=== PATIENT | female | born 1940 | race Hispanic/Latino ===

== ENCOUNTER → 2017-11-09 | Outpatient (CLI) | payer OTHER, MEDICARE ==
[~2017-11-09] MED LIST: ALBU8.5H8 IH; AMLO2.5T PO; ASPI-1197 PO; ATOR40TA69 PO; AZIT250T PO; Buspirone Hcl PO; CITA10TA13 PO; CLOP75TA32 PO; Cephalexin PO; FURO40TA5 PO; FURO40TA7 PO; GABA-531 PO; INSU200I4 SQ; ISOS20TA7 PO; ISOS60TA4 PO; LEVO100T12 PO; LOSA50TA37 PO; METO-408 PO; NITR0.4T SL; PANT40TA25 PO; ROPI0.255 PO; TYL3 PO; UMEC1DIS IH
== END ==
LOC: RAH 12:09
PROVIDERS: ATTEND Internal Medicine
DX: M19.072 Primary osteoarthritis, left ankle and foot (principal)
CPT/HCPCS: 73630

== ENCOUNTER 2017-12-01 12:57 | Observation (INO) | payer OTHER, MEDICARE ==
[~2017-12-01] VITALS: Ht 160 cm; Wt 93.2 kg
[~2017-12-01 12:57] MED LIST changes: -AMLO2.5T PO; -ISOS60TA4 PO
[2017-12-01 13:32] LABS: BASOPHILS % (AUTO) 0.4 % (0.0-5.0); EOSINOPHILS % (AUTO) 1.2 % (0.0-8.0); HEMATOCRIT 31.3 % (36-48); LYMPHOCYTES % (AUTO) 14.1 % (21.0-51.0); MEAN CORPUSCULAR HGB CONC 33.2 g/dL (32.0-36.0); MEAN CORPUSCULAR VOLUME 81.3 fL (79-99); NEUTROPHILS % (AUTO) 79.3 % (40.0-77.0); PLATELET COUNT (AUTO) 177 K/uL (130-400); RED BLOOD CELL COUNT(AUTO) 3.85 MIL/uL (4.00-5.50); RED CELL DISTRIBUTION WIDTH 16.1 % (11.0-15.5); WHITE BLOOD COUNT (AUTO) 7.9 K/uL (4.8-10.8)
[2017-12-01 13:51] LABS: CREATININE 1.1 mg/dL (0.5-1.5); POTASSIUM 4.2 mmol/L (3.5-5.1)
[2017-12-01 13:55] LABS: BILIRUBIN,TOTAL 0.6 mg/dL (0.2-1.0)
[2017-12-01 13:56] LABS: ALBUMIN 3.5 g/dL (3.5-5.0); TOTAL PROTEIN, SERUM 7.8 g/dL (6.0-8.3)
[2017-12-01] MEDS ORDERED: ASPIRIN 325 MG TABLET ONE (15:07)
[2017-12-01] MEDS ORDERED: NITROGLYCERIN 1GM/1 INCH PACKET TD ONE (15:18)
[2017-12-01] MEDS ORDERED: FUROSEMIDE 10 MG/ML 4ML VIAL ONE (15:18)
[2017-12-01] MEDS ORDERED: METHYLPREDNISOLONE SOD SUCC 40MG/ML 1ML ONE (15:18)
[2017-12-01] MEDS ORDERED: ALBUTEROL SULFATE 0.083% 2.5 MG/3 ML INH IH PRN ×2 (16:30→18:45)
[2017-12-01] MEDS: ALBUTEROL SULFATE 0.083% 2.5 MG/3 ML INH IH SCH (16:56)
[2017-12-01] MEDS: NITROGLYCERIN 1GM/1 INCH PACKET TD SCH ×2 (17:00→23:02)
[2017-12-01] MEDS ORDERED: BUSPIRONE HCL 5 MG TABLET PO PRN (18:15)
[2017-12-01] MEDS ORDERED: AZITHROMYCIN 250 MG TABLET PO SCH (18:30)
[2017-12-01] MEDS ORDERED: MAG HYDROX/AL HYDROX/SIMETH ES 30 ML SUSP UDCUP PO PRN (18:45)
[2017-12-01] MEDS ORDERED: ACETAMINOPHEN 325 MG TAB PO PRN ×2 (18:45)
[2017-12-01] MEDS ORDERED: ONDANSETRON HCL MDV 20ML 2 MG/ML VIAL IV PRN (18:45)
[2017-12-01] MEDS ORDERED: GLUCAGON 1MG KIT 1 MG ML IM PRN (19:15)
[2017-12-01] MEDS ORDERED: LIDOCAINE HCL-MPF 1% 2ML VIAL IVP PRN (19:15)
[2017-12-01] MEDS ORDERED: POTASSIUM CHLORIDE 10% ELIXIR 20 MEQ/15 ML UDCUP PO PRN (19:15)
[2017-12-01] MEDS ORDERED: POTASSIUM CHLORIDE 20MEQ/100ML 100 ML IV PRN (19:15)
[2017-12-01] MEDS ORDERED: DEXTROSE 50%-WATER 50 ML DISP.SYRIN IV PRN (19:15)
[2017-12-01] MEDS ORDERED: POTASSIUM CHLORIDE 20 MEQ ERTAB PO PRN (19:15)
[2017-12-01 20:00] VITALS: BP 148/60
[2017-12-01 20:37] LABS: CREATINE KINASE MB 0.8 ng/mL (0.5-3.6); CREATINE KINASE, TOTAL 42 U/L (21-232); MYOGLOBIN 103 ng/mL (10-92); TROPONIN I < 0.04 ng/mL (0.00-0.06)
[2017-12-01] MEDS ORDERED: ALBUTEROL SULFATE 0.083% 2.5 MG/3 ML INH IH SCH (21:00)
[2017-12-01] MEDS ORDERED: FUROSEMIDE 40 MG TABLET PO SCH (21:00)
[2017-12-01] MEDS ORDERED: ACETAMINOPHEN-CODEINE 300/30MG TAB PO PRN (21:00)
[2017-12-01] MEDS: GABAPENTIN 300 MG CAPSULE PO SCH (21:04)
[2017-12-01] MEDS: FUROSEMIDE 40 MG TABLET PO SCH (21:05)
[2017-12-01] MEDS: INSULIN HUMULIN R 100 UNIT/ML 3ML SQ SCH (21:10)
[2017-12-01] MEDS: INSULIN GLARGINE 100 UNITS/ML 10 ML VIAL SQ SCH (23:06)
[2017-12-02] VITALS: BP 162/72
[2017-12-02 02:21] LABS: CREATINE KINASE MB 0.9 ng/mL (0.5-3.6); CREATINE KINASE, TOTAL 38 U/L (21-232); MYOGLOBIN 97 ng/mL (10-92); TROPONIN I < 0.04 ng/mL (0.00-0.06)
[2017-12-02 04:00] VITALS: BP 144/60
[2017-12-02] MEDS: LEVOTHYROXINE 100 MCG TABLET PO SCH (06:03)
[2017-12-02] MEDS: NITROGLYCERIN 1GM/1 INCH PACKET TD SCH (06:03)
[2017-12-02] MEDS: ALBUTEROL SULFATE 0.083% 2.5 MG/3 ML INH IH SCH ×4 (06:47→19:32)
[2017-12-02] MEDS: INSULIN HUMULIN R 100 UNIT/ML 3ML SQ SCH ×4 (06:49→21:00)
[2017-12-02] MEDS: INSULIN GLARGINE 100 UNITS/ML 10 ML VIAL SQ SCH ×2 (06:50→23:17)
[2017-12-02 07:02] LABS: CREATININE 1.4 mg/dL (0.5-1.5); INR 0.99 (0.85-1.15); MAGNESIUM 2.3 mg/dL (1.80-2.40); POTASSIUM 4.2 mmol/L (3.5-5.1); PROTHROMBIN TIME 10.4 SEC (9.6-11.6)
[2017-12-02 07:16] LABS: T4 (THYROXINE) 11.9 mcg/dL (4.7-13.3); THYROID STIMULATING HORMONE 1.55 uIU/mL (0.36-3.74)
[2017-12-02 08:07] VITALS: BP 181/71
[2017-12-02] MEDS: GABAPENTIN 300 MG CAPSULE PO SCH ×2 (09:00→23:17)
[2017-12-02] MEDS ORDERED: CLOPIDOGREL BISULFATE 75 MG TAB PO SCH (09:00)
[2017-12-02] MEDS ORDERED: Metoprolol Succinate 25 MG PO SCH (09:00)
[2017-12-02] MEDS ORDERED: ROPINIROLE HCL 0.25 MG PO SCH (09:00)
[2017-12-02] MEDS ORDERED: ISOSORBIDE MONONITRATE 20 MG TABLET PO SCH (09:00)
[2017-12-02] MEDS ORDERED: ACETAMINOPHEN-CODEINE 300/30MG TAB PO SCH (09:00)
[2017-12-02] MEDS ORDERED: ISOSORBIDE MONO 30MG TAB SR PO SCH (09:00)
[2017-12-02] MEDS ORDERED: LOSARTAN 50 MG TABLET PO SCH (09:00)
[2017-12-02] MEDS: FUROSEMIDE 40 MG TABLET PO SCH ×2 (10:08→23:17)
[2017-12-02] MEDS: ASPIRIN 81MG TAB.CHEW PO SCH (10:08)
[2017-12-02] MEDS: CITALOPRAM 20 MG TABLET PO SCH (10:09)
[2017-12-02] MEDS: ATORVASTATIN CALCIUM 40 MG TABLET PO SCH (10:09)
[2017-12-02] MEDS: PANTOPRAZOLE SODIUM 40 MG TABLET.DR PO SCH (10:15)
[2017-12-02] MEDS: ISOSORBIDE MONO 30MG TAB SR PO SCH (10:29)
[2017-12-02] MEDS: LOSARTAN 50 MG TABLET PO SCH (10:29)
[2017-12-02 11:17] VITALS: BP 165/73
[2017-12-02] MEDS: LACTULOSE 20 GM/30 ML UDCUP PO PRN (15:05)
[2017-12-02] MEDS ORDERED: PHARMACY COMMUNICATION MISC SCH (16:00)
[2017-12-02] MEDS ORDERED: MAGNESIUM HYDROXIDE 30 ML/UDCUP PO SCH (16:00)
[2017-12-02 16:08] VITALS: BP 125/60
[2017-12-02] MEDS ORDERED: LIDOCAINE HCL 2% VISCOUS 30 ML, MAG HYDROX/AL HYDROX/SIMETH 30 ML, DICYCLOMINE HCL 20 MG PO PRN ×6 (16:30)
[2017-12-02] MEDS ORDERED: COMPOUND PO MISCELLANEOUS 1 EACH MISC MISC PRN (16:30)
[2017-12-02 16:46] LABS: CREATINE KINASE MB 2.2 ng/mL (0.5-3.6); CREATINE KINASE, TOTAL 129 U/L (21-232); MYOGLOBIN 1148 ng/mL (10-92); TROPONIN I < 0.04 ng/mL (0.00-0.06)
[2017-12-02 17:50] LABS: ALBUMIN 3.8 g/dL (3.5-5.0); BILIRUBIN,TOTAL 0.6 mg/dL (0.2-1.0); POTASSIUM 3.6 mmol/L (3.5-5.1); TOTAL PROTEIN, SERUM 8.2 g/dL (6.0-8.3)
[2017-12-02 20:00] VITALS: BP 140/52
[2017-12-03] VITALS: BP 125/46
[2017-12-03 00:55] VITALS: BP 132/51
[2017-12-03 04:00] VITALS: BP 130/54
[2017-12-03] MEDS: INSULIN HUMULIN R 100 UNIT/ML 3ML SQ SCH ×2 (06:20→11:14)
[2017-12-03 06:48] LABS: HEMATOCRIT 29.7 % (36-48); MEAN CORPUSCULAR HEMOGLOBIN 27.4 pg (27.0-33.0); MEAN CORPUSCULAR HGB CONC 33.5 g/dL (32.0-36.0); MEAN CORPUSCULAR VOLUME 81.7 fL (79-99); PLATELET COUNT (AUTO) 188 K/uL (130-400); RED BLOOD CELL COUNT(AUTO) 3.63 MIL/uL (4.00-5.50); RED CELL DISTRIBUTION WIDTH 16.7 % (11.0-15.5); WHITE BLOOD COUNT (AUTO) 9.4 K/uL (4.8-10.8)
[2017-12-03] MEDS: ALBUTEROL SULFATE 0.083% 2.5 MG/3 ML INH IH SCH ×3 (06:55→14:26)
[2017-12-03] MEDS: LEVOTHYROXINE 100 MCG TABLET PO SCH (07:03)
[2017-12-03 07:07] LABS: CREATININE 2.4 mg/dL (0.5-1.5); POTASSIUM 4.1 mmol/L (3.5-5.1)
[2017-12-03 07:13] LABS: B-TYPE NATRIURETIC PEPTIDE 489 pg/mL (0-100)
[2017-12-03] MEDS: INSULIN GLARGINE 100 UNITS/ML 10 ML VIAL SQ SCH (07:13)
[2017-12-03 07:51] VITALS: BP 152/71
[2017-12-03] MEDS: PANTOPRAZOLE SODIUM 40 MG TABLET.DR PO SCH (09:51)
[2017-12-03] MEDS: ISOSORBIDE MONO 30MG TAB SR PO SCH (09:51)
[2017-12-03] MEDS: ASPIRIN 81MG TAB.CHEW PO SCH (09:52)
[2017-12-03] MEDS: ATORVASTATIN CALCIUM 40 MG TABLET PO SCH (09:52)
[2017-12-03] MEDS: CITALOPRAM 20 MG TABLET PO SCH (09:52)
[2017-12-03] MEDS: GABAPENTIN 300 MG CAPSULE PO SCH (09:52)
[2017-12-03] MEDS: LOSARTAN 50 MG TABLET PO SCH (09:52)
[2017-12-03] MEDS: FUROSEMIDE 40 MG TABLET PO SCH (09:52)
[2017-12-03 11:12] VITALS: BP 172/80
[2017-12-03] MEDS ORDERED: ISOS60TA4 PO (13:02)
[2017-12-03] MEDS ORDERED: AMLO2.5T PO (13:02)
== END 2017-12-03 15:15 | disposition home or self-care (01) ==
LOC: EDH 12:57 → EDHIP 15:06 → 3CH 15:55
PROVIDERS: ADMIT Internal Medicine; ATTEND Internal Medicine
DX: R07.89 Other chest pain (principal); I25.10 Atherosclerotic heart disease of native coronary artery without angina pectoris; J44.9 Chronic obstructive pulmonary disease, unspecified; I13.0 Hypertensive heart and chronic kidney disease with heart failure and stage 1 through stage 4 chronic kidney disease, or unspecified chronic kidney disease; E11.22 Type 2 diabetes mellitus with diabetic chronic kidney disease; E11.3299 Type 2 diabetes mellitus with mild nonproliferative diabetic retinopathy without macular edema, unspecified eye; E11.42 Type 2 diabetes mellitus with diabetic polyneuropathy; E11.51 Type 2 diabetes mellitus with diabetic peripheral angiopathy without gangrene; D63.8 Anemia in other chronic diseases classified elsewhere; I50.43 Acute on chronic combined systolic (congestive) and diastolic (congestive) heart failure; N18.3 Chronic kidney disease, stage 3 (moderate); I70.202 Unspecified atherosclerosis of native arteries of extremities, left leg; K21.9 Gastro-esophageal reflux disease without esophagitis; E78.2 Mixed hyperlipidemia; E03.9 Hypothyroidism, unspecified; I25.5 Ischemic cardiomyopathy; E66.01 Morbid (severe) obesity due to excess calories; I16.1 Hypertensive emergency; I25.2 Old myocardial infarction; I44.1 Atrioventricular block, second degree; I48.91 Unspecified atrial fibrillation; J06.9 Acute upper respiratory infection, unspecified; F41.9 Anxiety disorder, unspecified; Z60.9 Problem related to social environment, unspecified; Z79.4 Long term (current) use of insulin; Z82.0 Family history of epilepsy and other diseases of the nervous system; Z82.3 Family history of stroke; Z82.49 Family history of ischemic heart disease and other diseases of the circulatory system; Z82.5 Family history of asthma and other chronic lower respiratory diseases; Z83.3 Family history of diabetes mellitus; Z91.19 Patient's noncompliance with other medical treatment and regimen; Z95.1 Presence of aortocoronary bypass graft; Z96.651 Presence of right artificial knee joint
CPT/HCPCS: 36415 ×3; 71046 ×2; 78580; 80048 ×2; 80053 ×2; 80061; 82550 ×4; 82553 ×3; 82948 ×8; 83690; 83735; 83874 ×3; 83880 ×2; 84436; 84443 ×2; 84484 ×4; 85025; 85027; 85610; 93005 ×3; 93306; 94640 ×8; 94664; 96372 ×3; 96374; 99285; A9540 ×2; G0378 ×48; J1815 ×4; J1940; J2920

== ENCOUNTER → 2017-12-22 | Outpatient (CLI) | payer OTHER, MEDICARE ==
[~2017-12-22] MED LIST changes: +AMLO2.5T PO; -AZIT250T PO; -Cephalexin PO; -ISOS20TA7 PO; +ISOS60TA4 PO; -METO-408 PO; -ROPI0.255 PO
== END | disposition home or self-care (01) ==
LOC: RAH 11:47
PROVIDERS: ATTEND Internal Medicine
DX: M25.474 Effusion, right foot (principal); M77.31 Calcaneal spur, right foot
CPT/HCPCS: 73620

== ENCOUNTER → 2018-06-04 | Outpatient (CLI) | payer OTHER, MEDICARE ==
[~2018-06-04] MED LIST changes: -AMLO2.5T PO; +AMLO2.5T3 PO; +LOSA50TA25 PO; -LOSA50TA37 PO
== END | disposition home or self-care (01) ==
LOC: RAH 12:01
PROVIDERS: ATTEND Internal Medicine
DX: M25.452 Effusion, left hip (principal); M25.552 Pain in left hip
CPT/HCPCS: 73502

== ENCOUNTER 2018-09-27 17:24 | Observation (INO) | payer OTHER, MEDICARE ==
[~2018-09-27] VITALS: Ht 160 cm; Wt 96.2 kg
[~2018-09-27 17:24] MED LIST changes: -AMLO2.5T3 PO; +AMLO2.5T4 PO; -LOSA50TA25 PO; +LOSA50TA64 PO
[2018-09-27 19:20] LABS: BASOPHILS % (AUTO) 0.4 % (0.0-5.0); EOSINOPHILS % (AUTO) 2.2 % (0.0-8.0); LYMPHOCYTES % (AUTO) 11.4 % (21.0-51.0); MEAN CORPUSCULAR HEMOGLOBIN 27.9 pg (27.0-33.0); MEAN CORPUSCULAR HGB CONC 33.6 g/dL (32.0-36.0); MEAN CORPUSCULAR VOLUME 82.9 fL (79-99); PLATELET COUNT (AUTO) 168 K/uL (130-400); WHITE BLOOD COUNT (AUTO) 6.2 K/uL (4.8-10.8)
[2018-09-27] MEDS ORDERED: ZOSYN 3.375GM+NS 50ML 50 ML IV ONE (21:00)
[2018-09-27] MEDS: SODIUM CHLORIDE 0.9% 1000ML 1,000 ML IV SCH (22:37)
[2018-09-27] MEDS ORDERED: VANCOMYCIN 1GM+NS 250ML 250 ML IV ONE (22:42)
[2018-09-27] MEDS ORDERED: SODIUM CHLORIDE 0.9% 1000ML 1,000 ML IV ONE (22:42)
[2018-09-27] MEDS ORDERED: GLUCAGON 1MG KIT 1 MG ML IM PRN (22:45)
[2018-09-27] MEDS ORDERED: MAG HYDROX/AL HYDROX/SIMETH ES 30 ML SUSP UDCUP PO PRN (22:45)
[2018-09-27] MEDS ORDERED: BUSPIRONE HCL 5 MG TABLET PO PRN (22:45)
[2018-09-27] MEDS ORDERED: VANCOMYCIN 1GM+NS 250ML 250 ML IV SCH (22:45)
[2018-09-27] MEDS ORDERED: DEXTROSE 50%-WATER 50 ML DISP.SYRIN IV PRN (22:45)
[2018-09-27] MEDS ORDERED: POTASSIUM CHLORIDE 20MEQ/100ML 100 ML IV PRN (22:45)
[2018-09-27] MEDS ORDERED: POTASSIUM CHLORIDE 20 MEQ ERTAB PO PRN (22:45)
[2018-09-27] MEDS ORDERED: POTASSIUM CHLORIDE 10% ELIXIR 20 MEQ/15 ML UDCUP PO PRN (22:45)
[2018-09-27] MEDS ORDERED: ONDANSETRON HCL 4 MG/2 ML VIAL IV PRN (22:45)
[2018-09-27] MEDS ORDERED: LACTULOSE 20 GM/30 ML UDCUP PO PRN (22:45)
[2018-09-27] MEDS ORDERED: LIDOCAINE HCL-MPF 1% 2ML VIAL IVP PRN (22:45)
[2018-09-27] MEDS ORDERED: ACETAMINOPHEN 325 MG TAB PO PRN ×2 (22:45)
--- NOTE | 2018-09-27 23:50 | NUR ---
Admission note: Received pt. per stretcher. AOx3. Can amb with cane, but advised on bedrest with BRP. Encourage to just PWB on affected foot at this time. Has an IV site of 20 g to RAC with NS1L at 125 ml/hr - intact and patency checked. Pt. oriented to room and used of call light. Policies and procedures explained. Verbalized understanding.Assessment done. VS checked and recorded. Orders carried out. Photo of the wound taken and attached to chart. To consult Dr. Hendricks in AM. Monitored and observed for any unusualities. Cared for and needs attended. Denies feeling of pain. No apparent distress noted. Endorsed to next shift accordingly.
[2018-09-28] VITALS (8 sets, daily range): BP systolic 130–180; BP diastolic 50–60
[2018-09-28] MEDS ORDERED: VANCOMYCIN PROTOCOL PER PHARMACY IV SCH ×2 (01:45→03:30)
[2018-09-28 04:33] LABS: HEMATOCRIT 27.7 % (36-48); MEAN CORPUSCULAR HEMOGLOBIN 27.8 pg (27.0-33.0); MEAN CORPUSCULAR HGB CONC 33.6 g/dL (32.0-36.0); MEAN CORPUSCULAR VOLUME 82.6 fL (79-99); PLATELET COUNT (AUTO) 159 K/uL (130-400); RED BLOOD CELL COUNT(AUTO) 3.35 MIL/uL (4.00-5.50); RED CELL DISTRIBUTION WIDTH 14.6 % (11.0-15.5)
[2018-09-28 04:55] LABS: POTASSIUM 4.9 mmol/L (3.5-5.1)
[2018-09-28] MEDS ORDERED: ZOSYN 3.375GM+NS 50ML 50 ML IV SCH ×2 (05:00)
[2018-09-28] MEDS: SODIUM CHLORIDE 0.9% 1000ML 1,000 ML IV SCH ×2 (06:36→06:37)
[2018-09-28] MEDS: LEVOTHYROXINE 112 MCG TABLET PO SCH (06:40)
[2018-09-28] MEDS: INSULIN HUMULIN R 100 UNIT/ML 3ML SQ SCH ×4 (06:42→20:25)
[2018-09-28] MEDS ORDERED: COMPOUND IV REFRIGERATED 1 EACH IVSOLN MISC PRN (06:45)
[2018-09-28] MEDS ORDERED: ALBUTEROL SULFATE 0.083% 2.5 MG/3 ML INH IH PRN (06:45)
[2018-09-28] MEDS: AMLODIPINE BESYLATE 2.5 MG TAB PO SCH (08:43)
[2018-09-28] MEDS: ASPIRIN 81MG TAB.CHEW PO SCH (08:43)
[2018-09-28] MEDS: CLOPIDOGREL BISULFATE 75 MG TAB PO SCH (08:43)
[2018-09-28] MEDS: ISOSORBIDE MONO 60 MG TAB.SR PO SCH (08:43)
[2018-09-28] MEDS: ATORVASTATIN CALCIUM 40 MG TABLET PO SCH (08:43)
[2018-09-28] MEDS: ACETAMINOPHEN-CODEINE 300/30MG TAB PO SCH (08:44)
[2018-09-28] MEDS: PANTOPRAZOLE SODIUM 40 MG TABLET.DR PO SCH (08:44)
[2018-09-28] MEDS: CITALOPRAM 20 MG TABLET PO SCH (08:44)
[2018-09-28] MEDS: ENOXAPARIN SODIUM 30 MG/0.3 ML SQ SCH (08:49)
[2018-09-28] MEDS: **HM** ANORO ELLIPTA 62.5-25MCG IH SCH (09:00)
[2018-09-28] MEDS ORDERED: VANCOMYCIN 1.5 GM in SODIUM CHLORIDE 0.9% 250 ML IV SCH (09:00)
[2018-09-28] MEDS ORDERED: INSU200I4 SQ (11:21)
[2018-09-28] MEDS ORDERED: TYL3 PO (11:21)
[2018-09-28] MEDS ORDERED: FURO40TA7 PO (11:21)
[2018-09-28] MEDS ORDERED: vitamin b12 PO (11:21)
[2018-09-28] MEDS ORDERED: DOCU-116 PO (11:23)
[2018-09-28] MEDS ORDERED: FAMO20TA8 PO (11:23)
[2018-09-28] MEDS ORDERED: FERR-82 PO (11:23)
--- NOTE | 2018-09-28 12:15 | NUR ---
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 Pt. admitted with Dx of Infected foot ulcer right great toe. Pt. on 75gm CCD diet. Pt. reports poor p.o. intake(<50%) this morning due to didn't like the breakfast meal; pt. states doesn't want any eggs. As per pt's daughter, pt. is a picky eater and eats small portions. Labs reviewed(BUN 36, Creat 2.0, GFR 26, BG 85). LBM: 09/27/18. SR- 18, right 5th toe ulcer. BMI: 37.6, obesity grade 1 for age. Pt. / daughter educated on Renal Non dialysis diet and provided with education material. Pt. / daughter verbalized understanding. Recommendations: 1) Rec. 75gm CCD Renal Non dialysis diet. 2) Renal Non Dialysis diet education given to pt. / daughter. 3) Rec. 500mg Vit C BID and 220mg Zinc sulfate QD to help promote wound healing. 4) Continue to monitor pt's nutritional status. 5) RD to follow-up within 3-5 days. Addendum: 09/28/18 at [address] Amended: Links added.
[2018-09-28] MEDS: LEVOFLOXACIN 500 MG TABLET PO SCH (14:24)
--- NOTE | 2018-09-28 16:52 | NUR ---
Recieved report from TORRES [place] Patient with BS 67, asymptomatic. Patient eating her dinner tray and instructed to drink some orange juice. Will recheck BS in 15 min. Patient verbalized understanding.
[2018-09-28] MEDS ORDERED: FUROSEMIDE 40 MG TABLET PO PRN (17:45)
[2018-09-29 03:37] VITALS: BP 138/47
[2018-09-29] MEDS: INSULIN HUMULIN R 100 UNIT/ML 3ML SQ SCH ×2 (06:37→11:30)
[2018-09-29] MEDS: LEVOTHYROXINE 112 MCG TABLET PO SCH (06:37)
[2018-09-29 08:00] VITALS: BP 155/59
[2018-09-29] MEDS: ASPIRIN 81MG TAB.CHEW PO SCH (08:37)
[2018-09-29] MEDS: CITALOPRAM 20 MG TABLET PO SCH (08:37)
[2018-09-29] MEDS: AMLODIPINE BESYLATE 2.5 MG TAB PO SCH (08:37)
[2018-09-29] MEDS: CLOPIDOGREL BISULFATE 75 MG TAB PO SCH (08:38)
[2018-09-29] MEDS: ACETAMINOPHEN-CODEINE 300/30MG TAB PO SCH (08:38)
[2018-09-29] MEDS: PANTOPRAZOLE SODIUM 40 MG TABLET.DR PO SCH (08:38)
[2018-09-29] MEDS: ATORVASTATIN CALCIUM 40 MG TABLET PO SCH (08:38)
[2018-09-29] MEDS: LEVOFLOXACIN 500 MG TABLET PO SCH (08:38)
[2018-09-29] MEDS: ENOXAPARIN SODIUM 30 MG/0.3 ML SQ SCH (08:39)
[2018-09-29] MEDS: ISOSORBIDE MONO 60 MG TAB.SR PO SCH (08:39)
[2018-09-29] MEDS: **HM** ANORO ELLIPTA 62.5-25MCG IH SCH (08:52)
--- NOTE | 2018-09-29 09:47 | NUR ---
MD ROUNDS- VISITED WITH PATIENT. POC DISCUSSED. NEW ORDERS RECEIVED AND CARRIED OUT. WOUND CULTURE DONE PER MD ORDERS. DRESSING CHANGE DONE BY . PATIENT TOLERATED WELL. NO COMPLAINTS OF PAIN VOICED AT THIS TIME. VITALS STABLE. AFEBRILE. TOLERATING IVF WELL. UP AD SALVATORE. PATIENT ENCOURAGED BY TO ELEVATE RIGHT FOOT WHEN SEATED OR IN BED. PATIENT FOLLOW S COMMANDS WELL. CALL LIGHT WITHIN REACH. WILL CONTINUE TO BE OBSERVED. Addendum: 09/29/18 at 0949 by JEFERSON LORENZO RN RN Amended: Links added.
[2018-09-29 11:45] VITALS: BP 143/63
[2018-09-29] MEDS ORDERED: LEVO500T2 PO (13:12)
[2018-09-29] MEDS ORDERED: CLIN300C9 PO (13:12)
--- NOTE | 2018-09-29 16:23 | NUR ---
cm note met with patient and family. pt states resides athome with 2 daughters pt able to use cane and walker at home. daughters assist at home with adls .choice letter obtained. and vanesa obtained. pt requesting for w/c,states dc plan is back to home. informed of md orders for home health and okayed for wc. informed pt and family that referral will be made to [facility]. in network provider. and [facility]. [facility] dme. informed that [facility] are unable to accept pt at this time. due to they need to verify insurance. as per slab conditioner supervisor nurse at [facility]. dr orellana updated on above, and states that she will followup to ensure that referral gets accepted on monday. requested cm to fax referral orders and info to and dme. and dr orellana will followup on monday. pt and family verbalize understanding.
--- NOTE | 2018-09-29 17:22 | NUR ---
cm note referral faxed for [facility]h to [facility] ph [phone] and also to [facility]' ph # [phone]. as per md request. family aware and in agreement.
--- NOTE | 2018-09-29 18:00 | NUR ---
DISCHARGE PATIENT GIVEN DISCHARGE INSTRUCTIONS AND EDUCATION, INCLUDING SIDE EFFECTS ON NEW PRESCRIBED MEDICATIONS AND THE NEED TO MAKE FOLLOW UP APPOINTMENTS. PATIENT VERBALIZED UNDERSTANDING OF ALL EDUCATION GIVEN VIA TEACH BACK. NO QUESTIONS OR CONCERNS VOICED AT THIS TIME. WOUND CARE SUPPLIES GIVEN TO PATIENT. IV DISCONTINUED, CATHETER INTACT. NO SIGNS OF DISTRESS NOTED UPON DISCHARGE. PATIENT LEFT VIA WHEELCHAIR TO PRIVATE CAR WITH DAUGHTER AT SIDE. ALL BELONGINGS TAKEN WITH. Addendum: 09/29/18 at 1843 by JEFERSON LORENZO RN RN Amended: Links added.
== END 2018-09-29 18:02 | disposition home or self-care (01) ==
LOC: EDH 17:24 → EDHIP 20:30 → 4BH 09-28 00:15
PROVIDERS: ADMIT Internal Medicine; ATTEND Internal Medicine
DX: E11.621 Type 2 diabetes mellitus with foot ulcer (principal); L97.519 Non-pressure chronic ulcer of other part of right foot with unspecified severity; L08.9 Local infection of the skin and subcutaneous tissue, unspecified; I70.202 Unspecified atherosclerosis of native arteries of extremities, left leg; E11.3299 Type 2 diabetes mellitus with mild nonproliferative diabetic retinopathy without macular edema, unspecified eye; E11.22 Type 2 diabetes mellitus with diabetic chronic kidney disease; I13.10 Hypertensive heart and chronic kidney disease without heart failure, with stage 1 through stage 4 chronic kidney disease, or unspecified chronic kidney disease; N18.3 Chronic kidney disease, stage 3 (moderate); E11.42 Type 2 diabetes mellitus with diabetic polyneuropathy; E11.51 Type 2 diabetes mellitus with diabetic peripheral angiopathy without gangrene; E78.5 Hyperlipidemia, unspecified; E03.9 Hypothyroidism, unspecified; D63.8 Anemia in other chronic diseases classified elsewhere; I25.10 Atherosclerotic heart disease of native coronary artery without angina pectoris; I48.91 Unspecified atrial fibrillation; J44.9 Chronic obstructive pulmonary disease, unspecified; K21.9 Gastro-esophageal reflux disease without esophagitis; M19.90 Unspecified osteoarthritis, unspecified site; Z79.4 Long term (current) use of insulin; Z79.02 Long term (current) use of antithrombotics/antiplatelets; Z95.1 Presence of aortocoronary bypass graft
CPT/HCPCS: 36415 ×2; 73630; 73718; 80048 ×2; 82948 ×6; 85025; 85027; 87040 ×2; 87070 ×2; 87076 ×2; 87077 ×2; 87186 ×2; 93970; 94664; 96365; 96366; 96367; 96372 ×2; 99284; G0378 ×46; J1650 ×2; J1815; J2405; J2543 ×2; J3370 ×2; J7030 ×2

== ENCOUNTER → 2020-09-28 | Outpatient (CLI) | payer OTHER, MEDICARE ==
[~2020-09-28] MED LIST changes: +ALBU2.5V2 IH; -ALBU8.5H8 IH; +ALBUMIN (HUMAN) 25% 200 ML IV SCH; -AMLO2.5T4 PO; -Buspirone Hcl PO; +CEFA1VIA11 IJ; -CITA10TA13 PO; +FAMO20TA8 PO; +FERR-82 PO; -FURO40TA5 PO; -FURO40TA7 PO; -GABA-531 PO; -INSU200I4 SQ; -ISOS60TA4 PO; +ISOS60TA77 PO; -LEVO100T12 PO; +LEVO112T7 PO; +LEVO500P29 IV; -LOSA50TA64 PO; +METR-172 PO; -NITR0.4T SL; -PANT40TA25 PO; +PANT40TA54 PO; +TRIP30O TP; -TYL3 PO; +TYL3B PO; -UMEC1DIS IH
[2020-09-28 08:56] LABS: INR 1.27 (0.85-1.15); PROTHROMBIN TIME 13.5 SEC (9.6-11.6)
[2020-09-28 08:57] LABS: PARTIAL THROMBOPLASTIN TIME 31.2 SEC (26.3-35.5)
[2020-09-28] MEDS: ALBUMIN (HUMAN) 25% 200 ML IV SCH ×2 (09:56→10:26)
[2020-09-28 12:19] LABS: ALBUMIN,BODY FLUID 2.3 g/dL; GLUCOSE,BODY FLUID 99 mg/dL (1-40)
[2020-09-28 13:34] LABS: APPEARANCE BODY FLUID SLIGHTLY CLOUDY (CLEAR); COLOR,BODY FLUID YELLOW (LT YELLOW); SPECIMENTYPE,BODY FLUID ASCITES
[2020-09-28 13:35] LABS: TOTAL VOLUME,BODY FLUID 10000 mL
[2020-09-28 13:36] LABS: BODY FLUID WBC 182 /cu. mm.
[2020-09-28 13:37] LABS: BODY FLUID RBC 748 /cu. mm.
[2020-09-28 13:39] LABS: BF LYMPHOCYTE 42 %; BF MONOCYTE 13 %
== END | disposition home or self-care (01) ==
LOC: RAH 08:03
PROVIDERS: ATTEND Internal Medicine
DX: R18.8 Other ascites (principal); K74.69 Other cirrhosis of liver; K76.6 Portal hypertension; I13.0 Hypertensive heart and chronic kidney disease with heart failure and stage 1 through stage 4 chronic kidney disease, or unspecified chronic kidney disease; E11.22 Type 2 diabetes mellitus with diabetic chronic kidney disease; N18.4 Chronic kidney disease, stage 4 (severe); E11.3299 Type 2 diabetes mellitus with mild nonproliferative diabetic retinopathy without macular edema, unspecified eye; E11.618 Type 2 diabetes mellitus with other diabetic arthropathy; E11.628 Type 2 diabetes mellitus with other skin complications; E11.59 Type 2 diabetes mellitus with other circulatory complications; I44.1 Atrioventricular block, second degree; I25.118 Atherosclerotic heart disease of native coronary artery with other forms of angina pectoris; I25.708 Atherosclerosis of coronary artery bypass graft(s), unspecified, with other forms of angina pectoris; I25.5 Ischemic cardiomyopathy; I50.42 Chronic combined systolic (congestive) and diastolic (congestive) heart failure; E66.01 Morbid (severe) obesity due to excess calories; E11.51 Type 2 diabetes mellitus with diabetic peripheral angiopathy without gangrene; D63.8 Anemia in other chronic diseases classified elsewhere; K21.9 Gastro-esophageal reflux disease without esophagitis; J44.9 Chronic obstructive pulmonary disease, unspecified; E03.9 Hypothyroidism, unspecified; E78.2 Mixed hyperlipidemia; I25.2 Old myocardial infarction; E11.65 Type 2 diabetes mellitus with hyperglycemia; Z79.4 Long term (current) use of insulin; Z68.41 Body mass index [BMI] 40.0-44.9, adult; Z79.890 Hormone replacement therapy; Z79.82 Long term (current) use of aspirin; Z79.899 Other long term (current) drug therapy; Z98.890 Other specified postprocedural states
CPT/HCPCS: 36415; 49083; 82042; 82945; 83615; 84157; 85610; 85730; 87071; 87205; 89051; A4215; P9046; 96365

== ENCOUNTER → 2024-01-04 | Outpatient (CLI) | payer MEDICARE ==
[~2024-01-04] MED LIST changes: -ALBUMIN (HUMAN) 25% 200 ML IV SCH
== END | disposition home or self-care (01) ==
LOC: RAH 08:30
PROVIDERS: ATTEND Internal Medicine Gastroenterology
DX: R16.1 Splenomegaly, not elsewhere classified (principal); R18.8 Other ascites; J90 Pleural effusion, not elsewhere classified; K74.60 Unspecified cirrhosis of liver
CPT/HCPCS: 76700; 93975